=== PATIENT | female | born 1975 | race Caucasian/White ===

== ENCOUNTER 2016-08-18 11:53 | Emergency (ER) | payer OTHER ==
[~2016-08-18] VITALS: Ht 162.6 cm; Wt 106.8 kg
[~2016-08-18 11:53] MED LIST: ALTERIL PO; AMBIEN10 MG PO; ARMOUR THYROID60 MG PO; BENZTROPINE MESY1 MG PO; COGENTIN1 MG PO; DIVALPROEX SOD250 MG PO; DIVALPROEX SOD500 M1 PO; FAMOTIDINE20 MG PO; HYDROXYZINE PAM25 MG PO; MULTIVITAMIN PO; NOHOMEMEDS; NYSTATIN500000 UNI PO; PERPHENAZINE16 MG PO; PERPHENAZINE8 MG PO; Pepcid PO; RIFAMPIN300 MG PO; RISPERDAL2 MG PO; RISPERIDONE3 MG PO; TRILAFON8 M1 PO; Thyroid PO; [UNRECOGNIZED DRUG - OTHER]; [UNRECOGNIZED DRUG - OTHER] PO
[2016-08-18 13:10] LABS: QUANTITATIVE HCG < 4.0 MIU/ML
[2016-08-18] MEDS ORDERED: ZOFRAN ODT4 MG PO (14:39)
[2016-08-18 15:02] LABS: CHLORIDE 108 mEq/L (99-109); POTASSIUM 3.2 mEq/L (3.7-5.4); SODIUM 141 mEq/L (136-147)
[2016-08-18 15:04] LABS: GLUCOSE 157 mg/dL (70-99)
[2016-08-18 15:05] LABS: ANION GAP 11 MEQ/L (2-14)
[2016-08-18 15:08] LABS: GFR ESTIMATE (CALCULATED) > 59 mL/min/; UREA NITROGEN (BUN) 14 mg/dL (9-23)
[2016-08-18 15:37] VITALS: BP 140/87
[2016-08-18 15:45] LABS: ADD MIUA? YES; BILIRUBIN NEGATIVE; BLOOD NEGATIVE; COLOR YELLOW ((YELLOW)); GLUCOSE (STRIP) NEGATIVE; KETONES 20; LEUKOCYTES MODERATE; NITRITE NEGATIVE; PROTEIN (STRIP) NEGATIVE; SPECIFIC GRAVITY 1.015 (1.000-1.030); UROBILINOGEN 0.2 MG/DL (0.2-1.0)
[2016-08-18 15:54] LABS: BACTERIA 1+ /HPF; EPITHELIAL CELLS 2+ /HPF; MUCUS 2+ /LPF; RED BLOOD CELLS 0-5 /HPF (0-5); UCUL ADDED? NO
== END 2016-08-18 15:38 | disposition home or self-care (01) ==
LOC: EME 11:53
PROVIDERS: Emergency Medicine
DX: B34.9 Viral infection, unspecified (principal); R53.81 Other malaise; R53.83 Other fatigue; R06.02 Shortness of breath; R51 Headache; R10.30 Lower abdominal pain, unspecified; R11.0 Nausea; J02.9 Acute pharyngitis, unspecified; R39.198 Other difficulties with micturition; N91.2 Amenorrhea, unspecified
CPT/HCPCS: 80048; 81003; 84702; 93005; 99281; 99284; J7030

== ENCOUNTER 2016-08-29 11:16 | Emergency (ER) | payer OTHER ==
[~2016-08-29] VITALS: Ht 152.4 cm; Wt 103.0 kg
[~2016-08-29 11:16] MED LIST changes: +ZOFRAN ODT4 MG PO
[2016-08-29 12:33] LABS: MCH 28.9 PG (29.0-34.0); MCHC 33.2 G/DL (30.0-36.0); MEAN PLAT.VOLUME 9.7 uM^3 (9.5-12.4); PLATELET COUNT 370 K/uL (156-360); RBC DIS.WIDTH-CV 12.8 % (11.8-14.6); RBC DIS.WIDTH-SD 40.1 % (39-53); RED BLOOD COUNT 5.06 M/uL (3.80-5.20)
[2016-08-29 12:35] LABS: WHITE BLOOD COUNT 7.7 K/uL (4.1-10.2)
[2016-08-29 12:42] LABS: CHLORIDE 105 mEq/L (99-109); POTASSIUM 3.4 mEq/L (3.7-5.4); SODIUM 141 mEq/L (136-147)
[2016-08-29 12:44] LABS: GLUCOSE 102 mg/dL (70-99)
[2016-08-29 12:46] LABS: ANION GAP 12 MEQ/L (2-14)
[2016-08-29 12:48] LABS: GFR ESTIMATE (CALCULATED) > 59 mL/min/
[2016-08-29 12:50] LABS: UREA NITROGEN (BUN) 8 mg/dL (9-23)
[2016-08-29 12:51] LABS: SALICYLATE < 5.0 MG/DL (15-30)
[2016-08-29 13:00] LABS: QUANTITATIVE HCG < 4.0 MIU/ML
[2016-08-29 13:33] LABS: SERUM ETHYL ALCOHOL < 10 mg/dL
[2016-08-29] MEDS ORDERED: NAPROXEN500 MG PO (13:39)
[2016-08-29 13:51] VITALS: BP 107/90
== END 2016-08-29 13:51 | disposition home or self-care (01) ==
LOC: EME 11:16
PROVIDERS: Nurse Practitioner Family
DX: M19.90 Unspecified osteoarthritis, unspecified site (principal); A69.20 Lyme disease, unspecified; M79.605 Pain in left leg; M79.604 Pain in right leg; F25.9 Schizoaffective disorder, unspecified
CPT/HCPCS: 80048; 81003; 84702; 85027; 99281; 99284; G0480

== ENCOUNTER 2016-09-04 00:41 | Inpatient (IN) | payer OTHER ==
[~2016-09-04] VITALS: Ht 160 cm; Wt 102.5 kg
[~2016-09-04 00:41] MED LIST changes: +NAPROXEN500 MG PO
[2016-09-04 01:10] LABS: HEMATOCRIT 39.8 % (36.0-46.0); MCH 29.4 PG (29.0-34.0); MCHC 33.7 G/DL (30.0-36.0); MCV 87.3 FL (83-99); MEAN PLAT.VOLUME 9.9 uM^3 (9.5-12.4); PLATELET COUNT 301 K/uL (156-360); RBC DIS.WIDTH-CV 12.5 % (11.8-14.6); RBC DIS.WIDTH-SD 39.8 % (39-53); RED BLOOD COUNT 4.56 M/uL (3.80-5.20); WHITE BLOOD COUNT 8.6 K/uL (4.1-10.2)
[2016-09-04 01:22] LABS: CHLORIDE 103 mEq/L (99-109); POTASSIUM 3.2 mEq/L (3.7-5.4); SODIUM 136 mEq/L (136-147)
[2016-09-04 01:25] LABS: GLUCOSE 157 mg/dL (70-99)
[2016-09-04 01:26] LABS: ANION GAP 11 MEQ/L (2-14)
[2016-09-04 01:27] LABS: TOTAL BILIRUBIN 0.6 mg/dL (0.0-1.0)
[2016-09-04 01:28] LABS: SERUM ETHYL ALCOHOL < 10 mg/dL
[2016-09-04 01:29] LABS: ALKALINE PHOSPHATASE 54 IU/L (3-129); GFR ESTIMATE (CALCULATED) > 59 mL/min/
[2016-09-04 01:30] LABS: DIRECT BILIRUBIN 0.2 mg/dL (0.0-0.3)
[2016-09-04 01:31] LABS: UREA NITROGEN (BUN) 12 mg/dL (9-23)
[2016-09-04 01:32] LABS: SALICYLATE < 5.0 MG/DL (15-30)
[2016-09-04 01:33] LABS: LIPASE 16 U/L (1.0-51.0)
[2016-09-04 01:34] LABS: INTER. NORMALIZED RATIO 1.1; PTT 28.5 (25-32)
[2016-09-04 01:39] LABS: QUANTITATIVE HCG < 4.0 MIU/ML
[2016-09-04 01:58] LABS: BASE EXCESS -1.5 mEq/L (-3 to +3); BICARBONATE 22.9 mEq/L (22-26); CARBOXY HGB 1.6 % (0-5); COMMENTS - BLOOD GASES C+A+; DEVICE ROOM AIR; METHEMOGLOBIN 1.2 % (0-1.5); PCO2 37 mm Hg (35-45); PO2 88 mm Hg (80-100); SITE RR
[2016-09-04 05:58] VITALS: BP 119/64
[2016-09-04 07:30] VITALS: BP 129/60
[2016-09-04 08:09] LABS: ANION GAP 17 MEQ/L (2-14); CHLORIDE 102 MEQ/L (99-109); POTASSIUM 3.6 MEQ/L (3.7-5.4); SAMPLE HEMOLYSIS CHECK 1; SAMPLE ICTERIC CHECK 0; SAMPLE LIPEMIA CHECK 0; SODIUM 138 MEQ/L (136-147)
[2016-09-04 08:15] LABS: GFR ESTIMATE (CALCULATED) > 59 mL/min/; GLUCOSE 135 mg/dL (70-99); UREA NITROGEN (BUN) 11 mg/dL (9-23)
[2016-09-04 08:50] LABS: HEMATOCRIT 33.6 % (36.0-46.0); MCH 29.7 PG (29.0-34.0); MCHC 34.2 G/DL (30.0-36.0); MCV 86.8 FL (83-99); PLATELET COUNT 252 K/uL (156-360); RBC DIS.WIDTH-CV 12.5 % (11.8-14.6); RBC DIS.WIDTH-SD 39.6 % (39-53); RED BLOOD COUNT 3.87 M/uL (3.80-5.20); WHITE BLOOD COUNT 7.8 K/uL (4.1-10.2)
[2016-09-04 11:51] VITALS: BP 136/58
[2016-09-04 12:31] LABS: INTER. NORMALIZED RATIO 1.2
[2016-09-04 12:44] LABS: PROTHROMBIN TIME 12.5 (9.2-11.2)
[2016-09-04] MEDS ORDERED: CLOZAPINE100 MG PO (15:10)
[2016-09-04] MEDS ORDERED: RISPERDAL2 MG PO (15:10)
[2016-09-04 19:09] VITALS: BP 138/94
[2016-09-04 20:02] LABS: EOSINOPHIL (%) 0 % (0-5); HEMATOCRIT 41.1 % (36.0-46.0); IMMATURE GRANULOCYTE (%) 1.7 % (0.0-0.7); IMMATURE GRANULOCYTE COUNT 0.1 K/uL; LYMPHOCYTE COUNT 1.3 K/uL (1.0-2.8); MCH 30.1 PG (29.0-34.0); MEAN PLAT.VOLUME 11.8 uM^3 (9.5-12.4); MONOCYTE (%) 7.4 % (3-12); MONOCYTE COUNT 0.5 K/uL (0-0.8); NEUTROPHIL (%) 71.4 % (45-76); RBC DIS.WIDTH-CV 12.8 % (11.8-14.6); RBC DIS.WIDTH-SD 39.8 % (39-53)
[2016-09-04 20:03] LABS: PLAT.SUFFICIENCY VERY DECREASED; PLATELET COUNT 16 K/uL (156-360); RED BLOOD COUNT 4.78 M/uL (3.80-5.20)
[2016-09-04 21:09] LABS: HEMATOCRIT 38.1 % (36.0-46.0); MCH 29.9 PG (29.0-34.0); MCHC 34.6 G/DL (30.0-36.0); MCV 86.4 FL (83-99); RBC DIS.WIDTH-CV 12.7 % (11.8-14.6); RBC DIS.WIDTH-SD 39.7 % (39-53); RED BLOOD COUNT 4.41 M/uL (3.80-5.20)
[2016-09-04 22:00] LABS: INTER. NORMALIZED RATIO 1.2; PROTHROMBIN TIME 12.5 (9.2-11.2)
[2016-09-04 22:00] LABS: EOSINOPHIL (%) 0 % (0-5); HEMATOLOGY COMMENT 1 SN; IMMATURE GRANULOCYTE (%) 0.5 % (0.0-0.7); LYMPHOCYTE COUNT 1.2 K/uL (1.0-2.8); MONOCYTE (%) 9.9 % (3-12); MONOCYTE COUNT 0.8 K/uL (0-0.8); PLAT.SUFFICIENCY ADEQUATE; PLATELET COUNT 296 K/uL (156-360)
[2016-09-04 22:03] LABS: GFR ESTIMATE (CALCULATED) > 59 mL/min/
[2016-09-04 23:59] VITALS: BP 128/77
[2016-09-05 04:23] VITALS: BP 143/82
[2016-09-05 08:30] VITALS: BP 120/61
[2016-09-05 10:48] LABS: EOSINOPHIL (%) 0 % (0-5); HEMATOCRIT 37.4 % (36.0-46.0); IMMATURE GRANULOCYTE (%) 0.4 % (0.0-0.7); INSTRUMENT ABS NEUTROPHIL CT 4.1 K/uL; MCH 29.1 PG (29.0-34.0); MCHC 33.4 G/DL (30.0-36.0); MEAN PLAT.VOLUME 10.5 uM^3 (9.5-12.4); MONOCYTE (%) 8.5 % (3-12); MONOCYTE COUNT 0.5 K/uL (0-0.8); NEUTROPHIL COUNT 4.1 K/uL (1.8-6.4); PLATELET COUNT 283 K/uL (156-360); RBC DIS.WIDTH-SD 40.5 % (39-53); WHITE BLOOD COUNT 5.6 K/uL (4.1-10.2)
[2016-09-05 10:52] LABS: INTER. NORMALIZED RATIO 1.2
[2016-09-05 10:55] LABS: MAGNESIUM 1.9 mg/dL (1.3-2.7)
[2016-09-05 10:55] LABS: CHLORIDE 111 mEq/L (99-109); POTASSIUM 3.4 mEq/L (3.7-5.4); SODIUM 142 mEq/L (136-147)
[2016-09-05 10:58] LABS: TOTAL BILIRUBIN 0.6 mg/dL (0.0-1.0)
[2016-09-05 10:59] LABS: ALKALINE PHOSPHATASE 46 IU/L (3-129)
[2016-09-05 10:59] LABS: ANION GAP 9 MEQ/L (2-14)
[2016-09-05 11:00] LABS: GLUCOSE 87 mg/dL (70-99); TOTAL BILIRUBIN 0.6 mg/dL (0.0-1.0)
[2016-09-05 11:01] LABS: ALKALINE PHOSPHATASE 40 IU/L (3-129)
[2016-09-05 11:02] LABS: GFR ESTIMATE (CALCULATED) > 59 mL/min/
[2016-09-05 11:02] LABS: DIRECT BILIRUBIN 0.2 mg/dL (0.0-0.3)
[2016-09-05 11:03] LABS: UREA NITROGEN (BUN) 6 mg/dL (9-23)
[2016-09-05 11:36] VITALS: BP 130/65
[2016-09-05 15:25] LABS: TROP-I INTERPRETATION NEGATIVE; TROPONIN-I < 0.01 ng/mL (0.0-0.30)
[2016-09-05 16:30] VITALS: BP 145/75
== END 2016-09-05 17:07 | disposition left against medical advice (07) | DRG 918 ==
LOC: EME 00:41 → EDOF 04:42 → 4EAST 04:42
PROVIDERS: Emergency Medicine; Internal Medicine; Nurse Practitioner Family
DX: T39.1X1A Poisoning by 4-Aminophenol derivatives, accidental (unintentional), initial encounter (principal); R00.0 Tachycardia, unspecified; F25.9 Schizoaffective disorder, unspecified; A69.20 Lyme disease, unspecified; M79.7 Fibromyalgia; J45.909 Unspecified asthma, uncomplicated; E66.9 Obesity, unspecified
CPT/HCPCS: 36600; 80048; 80048 91; 80053; 80076; 82374; 82565; 82803; 83690; 83735; 84450; 84460; 84484; 84702; 85025; 85025 91; 85027; 85610; 85730; 93005; 99281; 99285; G0480; J0132; J1630; J2060; J2405; J3480; J7030; J7060; J7070

== ENCOUNTER 2016-09-15 20:31 | Inpatient (IN) | payer OTHER ==
[~2016-09-15] VITALS: Ht 162.6 cm; Wt 103.5 kg
[~2016-09-15 20:31] MED LIST changes: +CLOZAPINE100 MG PO
[2016-09-15 21:18] LABS: HEMATOCRIT 41.6 % (36.0-46.0); MCH 29.9 PG (29.0-34.0); MCHC 34.1 G/DL (30.0-36.0); MCV 87.6 FL (83-99); MEAN PLAT.VOLUME 9.6 uM^3 (9.5-12.4); PLATELET COUNT 308 K/uL (156-360); RBC DIS.WIDTH-CV 12.9 % (11.8-14.6); RBC DIS.WIDTH-SD 40.9 % (39-53); RED BLOOD COUNT 4.75 M/uL (3.80-5.20); WHITE BLOOD COUNT 8.5 K/uL (4.1-10.2)
[2016-09-15 21:25] LABS: CHLORIDE 111 mEq/L (99-109); POTASSIUM 3.8 mEq/L (3.7-5.4); SODIUM 145 mEq/L (136-147)
[2016-09-15 21:27] LABS: GLUCOSE 104 mg/dL (70-99)
[2016-09-15 21:29] LABS: ANION GAP 8 MEQ/L (2-14)
[2016-09-15 21:30] LABS: SERUM ETHYL ALCOHOL < 10 mg/dL
[2016-09-15 21:31] LABS: GFR ESTIMATE (CALCULATED) > 59 mL/min/
[2016-09-15 21:32] LABS: UREA NITROGEN (BUN) 22 mg/dL (9-23)
[2016-09-15 21:44] LABS: QUANTITATIVE HCG < 4.0 MIU/ML
[2016-09-16 01:02] VITALS: BP 146/88
[2016-09-17 15:17] VITALS: BP 161/84
[2016-09-18 07:33] VITALS: BP 136/70
[2016-09-19 15:12] VITALS: BP 163/87
[2016-09-20 07:33] VITALS: BP 166/87
[2016-09-21] MEDS ORDERED: RISPERDAL2 MG PO (09:50)
[2016-09-21] MEDS ORDERED: DIVALPROEX SOD500 MG PO (09:50)
== END 2016-09-21 12:05 | disposition home or self-care (01) | DRG 885 ==
LOC: EME 20:31 → 1WEST 23:14 → EDOF 23:14 → 1WEST 09-16 00:53
PROVIDERS: Emergency Medicine
DX: F25.9 Schizoaffective disorder, unspecified (principal); Z91.14 Patient's other noncompliance with medication regimen; Z88.5 Allergy status to narcotic agent; Z88.2 Allergy status to sulfonamides
CPT/HCPCS: 80048; 84702; 85025; 85027; 90837; 97165 GO; 99281; 99285; G0480

== ENCOUNTER 2016-10-14 02:41 | Emergency (ER) | payer OTHER ==
[~2016-10-14 02:41] MED LIST changes: +DIVALPROEX SOD500 MG PO
== END 2016-10-14 03:46 | disposition left against medical advice (07) ==
LOC: EME 02:41
DX: S99.912A Unspecified injury of left ankle, initial encounter (principal); Z53.21 Procedure and treatment not carried out due to patient leaving prior to being seen by health care provider

== ENCOUNTER 2016-10-31 01:25 | Inpatient (IN) | payer OTHER ==
[~2016-10-31] VITALS: Ht 162.6 cm; Wt 101.0 kg
[2016-10-31 02:04] LABS: HEMATOCRIT 40.5 % (36.0-46.0); MCHC 34.1 G/DL (30.0-36.0); MEAN PLAT.VOLUME 9.4 uM^3 (9.5-12.4); PLATELET COUNT 283 K/uL (156-360); RBC DIS.WIDTH-CV 12.8 % (11.8-14.6); RBC DIS.WIDTH-SD 41.5 % (39-53); WHITE BLOOD COUNT 9.8 K/uL (4.1-10.2)
[2016-10-31 02:12] LABS: CHLORIDE 104 mEq/L (99-109); POTASSIUM 3.3 mEq/L (3.7-5.4); SODIUM 138 mEq/L (136-147)
[2016-10-31 02:14] LABS: GLUCOSE 103 mg/dL (70-99)
[2016-10-31 02:15] LABS: ANION GAP 8 MEQ/L (2-14)
[2016-10-31 02:17] LABS: SERUM ETHYL ALCOHOL < 10 mg/dL
[2016-10-31 02:18] LABS: GFR ESTIMATE (CALCULATED) > 59 mL/min/
[2016-10-31 02:19] LABS: UREA NITROGEN (BUN) 13 mg/dL (9-23)
[2016-10-31 02:26] LABS: QUANTITATIVE HCG < 4.0 MIU/ML
[2016-10-31 13:38] LABS: CHLAMYDIA TRACHOMATIS NEGATIVE; NEISSERIA GONORRHOEAE NEGATIVE
[2016-11-02 07:32] VITALS: BP 109/56
[2016-11-14 15:24] LABS: ADD MIUA? YES; BILIRUBIN NEGATIVE; BLOOD SMALL; COLOR STRAW ((YELLOW)); GLUCOSE (STRIP) NEGATIVE; KETONES 5; LEUKOCYTES LARGE; NITRITE NEGATIVE; PROTEIN (STRIP) NEGATIVE; SPECIFIC GRAVITY 1.002 (1.000-1.030); UROBILINOGEN 0.2 MG/DL (0.2-1.0)
[2016-11-14 15:40] LABS: RED BLOOD CELLS 0-5 /HPF (0-5)
[2016-11-14 15:41] LABS: BACTERIA RARE /HPF; CASTS NONE SEEN /LPF; CRYSTALS NONE SEEN; EPITHELIAL CELLS RARE /HPF; MUCUS NONE SEEN /LPF
[2016-11-15 15:55] VITALS: BP 132/86
[2016-11-16 11:25] VITALS: BP 119/74
[2016-11-16 15:26] VITALS: BP 125/76
[2016-11-18 08:01] VITALS: BP 115/61
[2016-11-20] MEDS ORDERED: DIVALPROEX SOD500 MG PO (09:38)
[2016-11-20] MEDS ORDERED: MODAFINIL100 MG PO (09:38)
[2016-11-20] MEDS ORDERED: NATURAL BALANCE15 M1 BOTH EYES (09:38)
[2016-11-20] MEDS ORDERED: RISPERDAL2 MG PO (09:38)
== END 2016-11-20 11:14 | disposition home or self-care (01) | DRG 885 ==
LOC: EME → EDBD 01:25 → EDOF 02:43 → 1WEST 02:43
PROVIDERS: Emergency Medicine; Psychiatry & Neurology Psychiatry
DX: F20.9 Schizophrenia, unspecified (principal); G47.10 Hypersomnia, unspecified; N73.9 Female pelvic inflammatory disease, unspecified; F31.9 Bipolar disorder, unspecified; J45.909 Unspecified asthma, uncomplicated; M79.7 Fibromyalgia; Z91.14 Patient's other noncompliance with medication regimen; Z88.2 Allergy status to sulfonamides; Z91.040 Latex allergy status
CPT/HCPCS: 80048; 80164; 81003; 84702; 85027; 87210; 87491; 87591; 90837; 97150 GO; 97166 GO; 99281; 99285; G0480; J0696; J2794; Q0177